=== PATIENT | female | born 1990 | race Caucasian/White ===

== ENCOUNTER 2016-12-22 19:15 | Emergency (ER) | payer OTHER ==
[2016-12-22 21:18] LABS: URINE SOURCE CLEAN CATCH
[2016-12-22 21:33] LABS: URINE APPEARANCE CLOUDY; URINE BILIRUBIN NEG (NEG); URINE BLOOD 2+ (NEG); URINE COLOR YELLOW; URINE GLUCOSE NEG (NEG); URINE KETONE NEG (NEG); URINE LEUKOCYTE ESTERASE 2+ (NEG); URINE NITRATE NEG (NEG); URINE PROTEIN NEG (NEG); URINE SPECIFIC GRAVITY 1.005 (1.003-1.035); URINE UROBILINOGEN 0.2 MG/DL (NEG)
[2016-12-22 21:35] LABS: AMPHETAMINE NEG (NEG); BARBITURATES NEG (NEG); BENZODIAZEPINES NEG (NEG); COCAINE NEG (NEG); MARIJUANA NEG (NEG); OPIATES NEG (NEG); TRICYCLIC ANTIDEPRESSANTS NEG (NEG); U METHADONE NEG (NEG)
[2016-12-22 21:43] LABS: CULTURE INDICATED? YES; URINE BACTERIA AUWI 2+ (NEGATIVE); URINE SQUAMOUS EPITHELIAL CELL FEW /[HPF]; UWBCS1 AUWI 25-50 (0-5)
[2016-12-22 22:06] LABS: ALBUMIN SERUM 4.1 g/dL (3.5-5.0); ALKALINE PHOSPHATASE 61 U/L (32-92); ALT (SGPT) 9 U/L (10-40); AST (SGOT) 12 U/L (10-42); BILIRUBIN,TOTAL 0.4 mg/dL (0.2-2.0); CALCIUM SERUM 9.2 mg/dL (8.4-10.2); CARBON DIOXIDE 24 mmol/L (22-31); CHLORIDE 109 mmol/L (100-111); CREATININE SERUM 0.8 mg/dL (0.6-1.4); GLOM FILT RATE Estimated 101.1 mL/min (>60); GLUCOSE FASTING 100 mg/dL (70-110); POTASSIUM 3.1 mmol/L (3.5-5.1); PROTEIN TOTAL SERUM 7.2 g/dL (6.0-8.3); SALICYLATE <4.0 mg/dL; SODIUM 141 mmol/L (135-145)
[2016-12-22 22:07] LABS: ACETAMINOPHEN <10 ug/mL; ALCOHOL BLOOD <5 mg/dL (0); BILIRUBIN, DIRECT <0.1 mg/dL (0.0-0.2); BILIRUBIN,INDIRECT 0.3 mg/dL (0.0-0.9); BLOOD UREA NITROGEN <5 mg/dL (9-23); BUN/CREATININE RATIO 6.25
[2016-12-22 22:08] LABS: URINE YEAST PRESENT
== END 2016-12-23 01:00 | disposition short-term general hospital (02) ==
LOC: CED 19:15
PROVIDERS: Emergency Medicine
DX: T39.392A Poisoning by other nonsteroidal anti-inflammatory drugs [NSAID], intentional self-harm, initial encounter (principal)
CPT/HCPCS: 36415; 80048; 80076; 80307; 81003; 87086; 99285; G0480

== ENCOUNTER 2016-12-22 22:00 | Inpatient (IN) | payer OTHER ==
[~2016-12-22] VITALS: Ht 165.1 cm; Wt 63.5 kg
--- NOTE | ~2016-12-22 | HP ---
Unit #: [id number] #: [id number] Patient: ROSALVA RAYO [id number] [place] [address] [id number] MR#: [id number] NAME: ROSALVA RAYO. ROOM: P254 Age: 26 Sex: F Admission Date: 12/23/2016 : 1990 Attending Physician: Karlos Miles M.D. Admitting Physician: Karlos Miles M.D. Primary Care Physician: Alex Simmons M.D. HISTORY AND PHYSICAL HISTORY OF PRESENT ILLNESS Rsoalva is a 26 year old admitted to [address] [place] [address] with depression after an overdose of meloxicam. She was seen in a local emergency room, medically cleared and then transferred to [facility] for psychiatric care. PAST MEDICAL HISTORY 1. Obesity. 2. Seizure disorder. PAST SURGICAL HISTORY 1. Pelvic lap. 2. D and C. ALLERGIES Percocet. SOCIAL HISTORY Smokes 1 pack per day. Denies alcohol and illicit drug use. FAMILY HISTORY Medically noncontributory. REVIEW OF SYSTEMS CONSTITUTIONAL: No fever or chills. HEENT: Denies any sore throat, ear pain or runny nose. CARDIOVASCULAR: Denies chest pain, irregular heart rhythm or palpitations. CHEST: Denies shortness of breath or cough. No hemoptysis. GASTROINTESTINAL: Denies nausea, vomiting, diarrhea or chronic constipation. ENDOCRINE: Denies history of increased thirst or urination. No recent significant weight loss or gain. GENITOURINARY: Denies dysuria, frequency, or hematuria. SKIN: Denies any rashes. She does report a large red somewhat tender pimple-like eruption along her right thigh. HEMATOLOGIC: Denies history of increased bleeding or bruising. MUSCULOSKELETAL: Denies any hot, swollen joints. No generalized muscle pain. NEUROLOGIC: Denies problems with vision or speech. No frequent, severe headaches. No numbness, tingling or weakness in any extremities. Denies loss of bladder or bowel control. CURRENT MEDICATIONS 1. Claritin 10 mg daily. Unit #: [id number] #: [id number] Patient: ROSALVA RAYO 2. Protonix 40 mg daily. 3. Zonegran 400 mg daily. 4. Folic acid 4 mg daily. 5. Latuda 120 mg q.h.s. 6. Lamictal 50 mg b.i.d. 7. Zovirax 400 mg b.i.d. 8. Mirapex 0.25 mg b.i.d. 9. Nicotine patch 21 mg daily. 10. Milk of Magnesia p.r.n. 11. Maalox p.r.n. 12. Tylenol p.r.n. 13. Macrobid 100 mg b.i.d. PHYSICAL EXAMINATION GENERAL: Alert, well-nourished, in no apparent distress. VITAL SIGNS: Blood pressure 124/80, heart rate 90, respirations 16, temperature 98.6. WEIGHT: 140. HEIGHT: 5 feet 5 inches. SKIN: Warm and dry without rash. She has a large approximately half dollar sized red, raised area with a center pustule along her right thigh. HEENT: Normocephalic. TMs not viewed. Oral and nasal passages clear. Conjunctivae clear. PERRLA. EOMs intact. NECK: Supple without lymphadenopathy or thyromegaly. HEART: Regular rate and rhythm without murmur. LUNGS: Clear. ABDOMEN: Soft, nontender. : Not done. EXTREMITIES: No evidence of cyanosis, clubbing or edema. Moves all without focal deficit. NEUROLOGICAL: Grossly within normal limits. Cranial Nerves: II: Visual blancas are intact. III, IV AND : Extraocular movements are intact. Pupils are equal, round and reactive to light. V: Facial sensation is grossly normal. VII: Facial movements and expression are normal. VIII: Auditory acuity grossly intact. IX, X: Uvula is midline. Phonation is normal. XI: Patient shrugs shoulders and turns head normally. XII: Tongue protrudes in the midline. Sensory and Motor Function: Sensory and motor sensation is grossly normal. Motor: moves all extremities well. Coordination: Gait is normal. Deep Tendon Reflexes: Intact. IMPRESSION 1. Psychiatric admission. 2. Cellulitis, right thigh. RECOMMENDATIONS PSYCHIATRIC: Per psychiatrist. MEDICAL: 1. See no contraindication to participate in facility's activities. 2. Start Cleocin 300 mg 1 p.o. t.i.d. x7 days. MEDICAL PROGNOSIS Good. MEDICAL CONDITION Stable. Unit #: [id number] #: [id number] Patient: ROSALVA RAYO Dictated by... Susu Damon P.A.-C. for Debbie Tracy/elisoe TD: 12/23/2016 18:36 JOB #: [id number] HISTORY AND PHYSICAL Page 1 of 1 X Susu Damon X HISTORY AND PHYSICAL
--- NOTE | ~2016-12-22 | PN ---
Unit #: [id number] #: [id number] Patient: NICKOLAS RAYO [id number] [facility] [address] [place] [address] [id number] MR#: [id number] NAME: NICKOLAS RAYO. ROOM: P254 Age: 26 Sex: F Admission Date: 12/23/2016 : 1990 Attending Physician: Karlos Miles M.D. Admitting Physician: Karlos Miles M.D. Primary Care Physician: Alex Simmons M.D. [facility] PROGRESS NOTES DATE 12/25/2016 DISCUSSION The patient's response to Mirapex has not yet begun to evidence itself. She remains seclusive to room with little participation within therapeutic milieu. She continues to endorse hopelessness and suicidal thinking. Dictated by... Karlos Miles M.D. CB/bzg TD: 12/26/2016 09:01 JOB #: [id number] [facility] PROGRESS NOTES Page 1 of 1 X Karlos Miles MD X PROGRESS NOTE
--- NOTE | ~2016-12-22 | PN ---
Unit #: [id number] #: [id number] Patient: NICKOLAS RAYO [id number] [facility] [address] [place] [address] [id number] I MR#: [id number] NAME: NICKOLAS RAYO. ROOM: P254 Age: 26 Sex: F Admission Date: 12/23/2016 : 1990 Attending Physician: Karlos Miles M.D. Admitting Physician: Karlos Miles M.D. Primary Care Physician: Debbie Dooley PROGRESS NOTES DATE 12/24/2016 DISCUSSION The patient is in somewhat brighter today and states that she has been active within the therapeutic milieu. She continues to endorse positive suicidal ideation but is willing to sign in for voluntary treatment today. She tolerated initiation of Mirapex with no complaints. Dictated by... Karlos Miles M.D. CB/donald TD: 12/24/2016 14:27 JOB #: [id number] [facility] PROGRESS NOTES Page 1 of 1 X Karlos Miles MD X PROGRESS NOTE
--- NOTE | ~2016-12-22 | DS ---
Unit #: [id number] #: [id number] Patient: NICKOLAS RAYO [id number] [place] [address] [id number] MR#: [id number] NAME: NICKOLAS RAYO. ROOM: P254 Age: 26 Sex: F Admission Date: 12/23/2016 : 1990 Discharge Date: 12/26/2016 Attending Physician: Karlos Miles M.D. Primary Care Physician: Alex Simmons M.D. DISCHARGE SUMMARY REASON FOR ADMISSION The patient is a 26-year-old white female, admitted in a depressed phase of bipolar disorder. HOSPITAL COURSE The patient was admitted to the [address] [place] [address] unit and placed on suicide precautions. She was continued on previously prescribed medications and was continued on Cleocin and Macrobid for which she was taking for infectious processes. Because of the patient's history of seizure disorder, Wellbutrin was not thought to be a wide augmentation strategy for the patient's depressive symptoms reporting that given the fact that she was already on a maximum dose of Latuda the patient was begun on pramipexole 0.25 mg twice daily which she tolerated without complaint. The patient participated actively within the therapeutic milieu and by 12/26 was in bright spirits. It was recommended that the patient follow up in the intensive outpatient program provided by this facility though the patient was unsure as to whether she would do this at the time of discharge. DISCHARGE DIAGNOSES [place] I Bipolar disorder, most recent episode depressed. [place] II [place] III Seizure disorder. Urinary tract infection. Upper respiratory infection. HSV-2. Gastroesophageal reflux disease. [place] IV [place] V DISPOSITION ON DISCHARGE The patient was discharged on the following medications: 1. Cleocin 150 mg two tablets three times daily for infection 2. Loratadine 10 mg once daily for environmental allergies 3. Protonix 40 mg a day for GERD 4. Lamotrigine 50 mg twice daily for mood stabilization 5. Lurasidone 120 mg nightly for mood stabilization 6. Zovirax 400 mg twice daily for HSV-2 7. Zonegran 400 mg nightly for seizure disorder 8. Macrobid 100 mg twice daily for urinary tract infection 9. Mirapex 0.25 mg twice daily for bipolar depression Unit #: [id number] #: [id number] Patient: NICKOLAS RAYO PROGNOSIS The patient's prognosis is considered fair. DIET AND ACTIVITY No dietary or physical restrictions were placed on the patient at the time of discharge. Follow up will take place through the auspices of community mental health resources. Dictated by.Ayden. Debbie Tony TD: 12/30/2016 06:09 JOB #: [id number] DISCHARGE SUMMARY Page 1 of 1 X Karlos Miles MD X DISCHARGE SUMMARY
--- NOTE | ~2016-12-22 | PA ---
Unit #: [id number] #: [id number] Patient: NICKOLAS RAYO [id number] [place] [address] [id number] MR#: [id number] NAME: NICKOLAS RAYO. ROOM: P254 Age: 26 Sex: F Admission Date: 12/23/2016 : 1990 Date of Assessment: 12/23/2016 Attending Physician: Karlos Miles M.D. Admitting Physician: Karlos Miles M.D. Primary Care Physician: Alex Simmons M.D. PSYCHIATRIC ASSESSMENT IDENTIFYING INFORMATION The patient is a 26-year-old single white female admitted to the [address] [place] [address] Unit with increasing suicidal ideation. CHIEF COMPLAINT Suicidal. INFORMANT(S) Patient, reliability is good. HISTORY OF PRESENT ILLNESS The patient is a 26-year-old white female admitted to the [address] [place] [address] complaining of depressed mood and suicidal ideation with plan to overdose. The patient was last admitted to this facility approximately 2 years ago and now carries a diagnosis of bipolar spectrum. She is followed by a physician at the [facility] and has recently had her Latuda dose increased to 120 mg daily. In spite of this, she continues to endorse hopelessness and suicidal ideation. The patient lives with her grandfather and 14-year-old daughter. She complains of difficulty with child-rearing as well as difficult job situation stating that she does not care for people with whom she works. The patient does suffer from a seizure disorder and is currently prescribed lamotrigine and Zonegran by primary care physician. The patient currently is suffering from urinary tract infection and is being treated with Macrodantin. When seen today, the patient remains dysphoric and flat. She complains of increased sleep, reduced energy, lack of motivation, and depressed mood. PAST PSYCHIATRIC HISTORY As noted previously, the patient was last hospitalized at this facility approximately 2 years ago. She states that she is now followed by a provider at the [facility]. PAST MEDICAL HISTORY Significant for the aforementioned seizure disorder, urinary tract infection, HSV2, and environmental allergies, and GERD. MEDICATIONS Macrobid, folic acid, zonisamide, acyclovir, Latuda, Zyrtec, lamotrigine, pantoprazole. ALLERGIES Oxycodone. Unit #: [id number] #: [id number] Patient: NICKOLAS RAYO FAMILY HISTORY Noncontributory. SOCIAL HISTORY The patient lives with her grandfather and [id number] child. She is employed doing "customer service." She denies use of alcohol, tobacco, or street drugs. MENTAL STATUS EXAMINATION Examination at this time reveals the patient to be a well-developed well-nourished white female appearing her stated age. She is in no apparent physical distress at the time of examination. She is awake, alert, and oriented in all spheres. Her mood is dysphoric, her affect blunted. Speech is generally well-coherent. No gross deficits in memory or cognition noted. Intelligence is judged to be in the average range based on fund of knowledge. The patient is cooperative throughout the interview. She is currently endorsing positive suicidal ideation. She denies homicidal ideation. She denies any psychotic symptoms. Her judgment and insight appear to be intact. ASSETS AND LIABILITIES The patient's assets: Motivation for change. Liabilities: Lack of resources. DIAGNOSTIC IMPRESSION 1. Bipolar disorder, depressed phase. 2. Seizure disorder. 3. Urinary tract infection. 4. HSV2. 5. Environmental allergies. 6. Gastroesophageal reflux disease. TREATMENT PLAN The patient remains hospitalized for safety and stabilization. I will add Mirapex 0.25 mg twice daily to address the patient's depressive symptoms, and we will continue previously prescribed Latuda and Lamotrigine. We may look to optimize the patient's lamotrigine dose given her current symptoms in addition to addition of Mirapex. The patient will remain on suicide precautions. ESTIMATED LENGTH OF STAY 5 to 7 days in the hospital. Dictated by... Karlos Miles M.D. Jn TD: 12/23/2016 13:11 JOB #: [id number] Unit #: [id number] #: [id number] Patient: NICKOLAS RAYO PSYCHIATRIC ASSESSMENT Page 1 of 1 X Karlos Miles MD PSYCHIATRIC ASSESSMENT
[2016-12-23 09:43] LABS: BASOPHIL% 0.7 % (0-2.5); EOSINOPHIL# 0.2 X10e3 (0-0.7); EOSINOPHIL% 3.8 % (0.0-7.0); HEMATOCRIT 39.8 % (35.0-45.0); HEMOGLOBIN 13.4 gm/dL (12.0-16.0); LYMPHOCYTE# 2.8 X10e3 (1.0-3.5); LYMPHOCYTE% 44.3 % (17.0-45.0); MEAN CELL VOLUME 89.8 FL (83-96); MEAN CORPUSCULAR HEMOGLOBIN 30.3 PG (28-34); MEAN CORPUSCULAR HGB CONC 33.8 g/dL (30-36); MEAN PLATELET VOLUME 8.5 FL (6.5-11.5); MONOCYTE# 0.5 X10e3 (0-1.0); MONOCYTE% 8.1 % (3.0-12.0); NEUTROPHIL# 2.8 X10e3 (1.5-7.1); NEUTROPHIL% 43.1 % (40-75); PLATELET COUNT 223 X10e3 (140-420); RED BLOOD COUNT 4.44 X10e (3.90-5.30); RED CELL DISTRIBUTION WIDTH 12.9 % (11.0-15.5); WHITE BLOOD COUNT 6.4 X10e3 (4.0-10.5)
[2016-12-23 09:53] LABS: DIFF IND NO
[2016-12-23 10:08] LABS: BILIRUBIN,TOTAL 0.5 mg/dL (0.2-2.0); BUN/CREATININE RATIO 7.5; CALCIUM SERUM 9.3 mg/dL (8.4-10.2); CREATININE SERUM 0.8 mg/dL (0.6-1.4); GLOM FILT RATE Estimated 101.1 mL/min (>60); PROTEIN TOTAL SERUM 6.7 g/dL (6.0-8.3)
[2016-12-23 12:45] LABS: URINE APPEARANCE CLOUDY; URINE BILIRUBIN NEG (NEG); URINE BLOOD 2+ (NEG); URINE COLOR YELLOW; URINE GLUCOSE NEG (NEG); URINE KETONE NEG (NEG); URINE LEUKOCYTE ESTERASE 3+ (NEG); URINE NITRATE NEG (NEG); URINE PH 7.5 (5-8); URINE PROTEIN NEG (NEG); URINE SPECIFIC GRAVITY 1.009 (1.003-1.035); URINE UROBILINOGEN 0.2 MG/DL (NEG)
[2016-12-23 12:50] LABS: URINE BACTERIA AUWI 2+ (NEGATIVE); URINE SQUAMOUS EPITHELIAL CELL MOD /[HPF]; UWBCS1 AUWI 50-100 (0-5)
[2016-12-23 13:08] LABS: URINE MUCUS PRESENT; URINE YEAST PRESENT
[2016-12-23 14:13] LABS: AMPHETAMINE NEG (NEG); BARBITURATES NEG (NEG); BENZODIAZEPINES NEG (NEG); COCAINE NEG (NEG); MARIJUANA NEG (NEG); OPIATES NEG (NEG); TRICYCLIC ANTIDEPRESSANTS NEG (NEG); U METHADONE NEG (NEG)
== END 2016-12-26 13:10 | disposition home or self-care (01) | DRG 885 ==
LOC: P2L 12-23 01:59
PROVIDERS: Specialist
DX: F31.9 Bipolar disorder, unspecified (principal); R45.851 Suicidal ideations; L03.115 Cellulitis of right lower limb; N39.0 Urinary tract infection, site not specified; G40.909 Epilepsy, unspecified, not intractable, without status epilepticus; J30.2 Other seasonal allergic rhinitis; K21.9 Gastro-esophageal reflux disease without esophagitis; Z88.5 Allergy status to narcotic agent; T39 Poisoning by, adverse effect of and underdosing of nonopioid analgesics, antipyretics and antirheumatics; F17.210 Nicotine dependence, cigarettes, uncomplicated; J06.9 Acute upper respiratory infection, unspecified
CPT/HCPCS: 80053; 80307; 81003; 85025